=== PATIENT | female | born 1990 ===

== ENCOUNTER 2018-12-07 09:28 | Outpatient (CLI) | payer OTHER ==
[~2018-12-07] VITALS: Ht 160 cm; Wt 56.7 kg
== END 2018-12-07 09:40 | disposition home or self-care (01) ==
LOC: OFIC 805 09:28
DX: J30.89 Other allergic rhinitis (principal); R09.81 Nasal congestion

== ENCOUNTER 2019-05-18 10:25 | Outpatient (CLI) | payer OTHER | END 2019-05-18 11:35 | disposition home or self-care (01) | LOC: PRENATAL 10:25 | DX: O34.42 Maternal care for other abnormalities of cervix, second trimester (principal); O09.812 Supervision of pregnancy resulting from assisted reproductive technology, second trimester; O35.3XX0 Maternal care for (suspected) damage to fetus from viral disease in mother, not applicable or unspecified ==

== ENCOUNTER 2019-06-28 08:29 | Outpatient (CLI) | payer OTHER | END 2019-06-28 09:35 | disposition home or self-care (01) | LOC: PRENATAL 08:29 | DX: O26.842 Uterine size-date discrepancy, second trimester (principal); O09.812 Supervision of pregnancy resulting from assisted reproductive technology, second trimester ==